=== PATIENT | female | born 1990 | race Caucasian/White ===

== ENCOUNTER 2018-05-09 22:06 | Emergency (ER) | payer OTHER, MEDICAID ==
[2018-05-10] MEDS: ACETAMINOPHEN 500 MG TAB PO (00:28)
[2018-05-10 00:56] LABS: ADD UMIC NO; UR ASCORBIC ACID NEGATIVE (NEGATIVE); UR BILIRUBIN (Dip) NEGATIVE (NEGATIVE); UR BLOOD (Dip) NEGATIVE (NEGATIVE); UR CLARITY CLEAR (CLEAR); UR COLOR YELLOW (YELLOW); UR GLUCOSE (Dip) NEGATIVE (NEGATIVE); UR KETONES (Dip) NEGATIVE (NEGATIVE); UR LEUKOCYTE ESTERASE (Dip) NEGATIVE Leu/ul (NEGATIVE); UR NITRITE (Dip) NEGATIVE (NEGATIVE); UR SPECIFIC GRAVITY (Dip) 1.018 (1.003-1.030); UR TOTAL PROTEIN (Dip) NEGATIVE (NEGATIVE); UR UROBILINOGEN (Dip) NEGATIVE (NEGATIVE)
== END 2018-05-10 02:18 | disposition home or self-care (01) ==
LOC: FTE 22:06
DX: O9A.211 Injury, poisoning and certain other consequences of external causes complicating pregnancy, first trimester (principal); S40.011A Contusion of right shoulder, initial encounter; R10.2 Pelvic and perineal pain; V43.62XA Car passenger injured in collision with other type car in traffic accident, initial encounter; Z3A.13 13 weeks gestation of pregnancy
CPT/HCPCS: 76805; 81003; 87086; 99284-25

== ENCOUNTER 2018-05-13 01:12 | Emergency (ER) | payer OTHER ==
[2018-05-13] MEDS: ACETAMINOPHEN 325 MG TAB PO (02:15)
== END 2018-05-13 03:45 | disposition home or self-care (01) ==
LOC: FTE 01:12
DX: O26.891 Other specified pregnancy related conditions, first trimester (principal); R10.30 Lower abdominal pain, unspecified; Z3A.14 14 weeks gestation of pregnancy
CPT/HCPCS: 76805; 99284-25

== ENCOUNTER 2018-05-23 16:40 | Emergency (ER) | payer OTHER | END 2018-05-23 22:14 | disposition home or self-care (01) | LOC: FTE 16:40 | DX: O20.9 Hemorrhage in early pregnancy, unspecified (principal); Z3A.15 15 weeks gestation of pregnancy | CPT/HCPCS: 76805; 99284-25 ==

== ENCOUNTER 2018-11-06 18:59 | Inpatient (IN) | payer OTHER ==
[2018-11-06 20:12] LABS: ADD UMIC NO; UR ASCORBIC ACID NEGATIVE (NEGATIVE); UR BILIRUBIN (Dip) NEGATIVE (NEGATIVE); UR BLOOD (Dip) NEGATIVE (NEGATIVE); UR CLARITY CLEAR (CLEAR); UR COLOR STRAW (YELLOW); UR GLUCOSE (Dip) NEGATIVE (NEGATIVE); UR KETONES (Dip) NEGATIVE (NEGATIVE); UR LEUKOCYTE ESTERASE (Dip) NEGATIVE Leu/ul (NEGATIVE); UR NITRITE (Dip) NEGATIVE (NEGATIVE); UR SPECIFIC GRAVITY (Dip) 1.009 (1.003-1.030); UR TOTAL PROTEIN (Dip) NEGATIVE (NEGATIVE); UR UROBILINOGEN (Dip) NEGATIVE (NEGATIVE)
[2018-11-06] MEDS ORDERED: LACTATED RINGER'S 1,000 ML IV (20:23)
[2018-11-06] MEDS ORDERED: MINERAL OIL LIGHT 10 ML VIAL TOP (20:30)
[2018-11-06] MEDS ORDERED: MISOPROSTOL 200 MCG TAB PR (20:30)
[2018-11-06] MEDS ORDERED: CARBOPROST 250 MCG INJ IM (20:30)
[2018-11-06] MEDS ORDERED: IBUPROFEN 600 MG TAB PO (20:30)
[2018-11-06] MEDS ORDERED: LIDOCAINE 1% (MPF) 30 ML INJ INJ (20:30)
[2018-11-06] MEDS ORDERED: OXYTOCIN 30 UNITS/LR 500 ML IV ×2 (20:30)
[2018-11-06 20:35] LABS: BARBITURATES NEGATIVE (NEGATIVE); BENZODIAZEPINES NEGATIVE (NEGATIVE); CANNABINOIDS NEGATIVE (NEGATIVE); COCAINE NEGATIVE (NEGATIVE); OPIATES NEGATIVE (NEGATIVE)
[2018-11-06 20:49] LABS: AMPHETAMINE/METHAMPHETAMINE Negative (NEGATIVE)
[2018-11-06] MEDS: LACTATED RINGER'S 1,000 ML IV (21:40)
[2018-11-06 22:12] LABS: ADD MAN DIFF? NO
[2018-11-06 22:14] LABS: BASOPHIL # 0.1 10^3/ul (0.0-0.1); BASOPHILS % 0.5 % (0.0-2.0); EOSINOPHILS # 0.1 10^3/ul (0.0-0.5); EOSINOPHILS % 1.1 % (0.0-7.0); HEMATOCRIT 30.5 % (37.0-47.0); HEMOGLOBIN 10.1 g/dl (12.0-16.0); LYMPHOCYTES # 2.5 10^3/ul (0.8-2.9); LYMPHOCYTES % 21.6 % (15.0-51.0); MEAN CORPUSCULAR HGB CONC 33.1 g/dl (32.0-37.0); MEAN CORPUSCULAR VOLUME 87.6 fl (82.0-101.0); MEAN PLATELET VOLUME 11.2 fl (7.4-10.4); MONOCYTE # 0.9 10^3/ul (0.3-0.9); NEUTROPHIL # 7.5 10^3/ul (1.6-7.5); NEUTROPHILS % 66.3 % (39.0-77.0); PLATELET COUNT 233 10^3/UL (140-415); RED BLOOD COUNT 3.48 10^6/ul (4.20-5.40); RED CELL DISTRIBUTION WIDTH 13.6 % (11.5-14.5)
[2018-11-06 22:14] LABS: WHITE BLOOD COUNT 11.3 10^3/ul (4.8-10.8)
[2018-11-06 22:33] LABS: INR 0.91; PROTIME 12.4 Sec (11.9-14.9)
[2018-11-06 22:34] LABS: PARTIAL THROMBOPLASTIN TIME 27.3 Sec (23.0-35.0)
[2018-11-06] MEDS: MISOPROSTOL 50 MCG CAPSULE PO (22:58)
[2018-11-07] MEDS: MISOPROSTOL 50 MCG CAPSULE PO ×4 (02:00→15:57)
[2018-11-07] MEDS: LACTATED RINGER'S 1,000 ML IV ×3 (04:56→15:47)
[2018-11-07] MEDS: OXYTOCIN 30 UNITS/LR 500 ML IV ×2 (11:01→19:55)
[2018-11-07] MEDS: BUTORPHANOL 2 MG INJ IV (13:33)
[2018-11-07 15:17] LABS: RAPID PLASMA REAGIN NONREACTIVE (NR)
[2018-11-07] MEDS ORDERED: FENTAnyl 2MCG/ML-ROPIV 0.2% 100 ML (15:18)
[2018-11-07] MEDS ORDERED: DIPHENHYDRAMINE 50 MG INJ IV ×2 (16:00→22:30)
[2018-11-07] MEDS ORDERED: NALOXONE (0.4 MG/ML) INJ IV (16:00)
[2018-11-07] MEDS ORDERED: ONDANSETRON 4 MG INJ IV ×2 (16:00→22:30)
[2018-11-07] MEDS: FENTAnyl 2MCG/ML-ROPIV 0.2% 100 ML BAG EPI (19:29)
[2018-11-07] MEDS: METHYLERGONOVINE 0.2 MG INJ IM (19:29)
[2018-11-07 19:31] LABS: CBV Base Excess -3.9 mmol/L; CBV COHb 1.5 %; CBV Oxygen Sat 69.6 mmHG; CBV Total Hemglobin 16.5 g/dl; Cord Blood Venous pO2 30.9 mmHG (15.0-45.0); Fraction OxyHgb Cord Venous 67.8 %; MODE ROOM AIR; MetHgb Cord Venous 1.1 %; Sample Type Blood venous; Site CORD
[2018-11-07] MEDS: MISOPROSTOL 200 MCG TAB PO (19:38)
[2018-11-07] MEDS: ACETAMINOPHEN 500 MG TAB PO (19:52)
[2018-11-07] MEDS: LACTATED RINGER'S 1,000 ML IV* (22:05)
[2018-11-07] MEDS: DEXTROSE 5%-LR 1,000 ML IV ×2 (22:05→23:59)
[2018-11-07] MEDS ORDERED: OXYCODONE/ASPIRIN (4.88/325) TAB PO (22:30)
[2018-11-07] MEDS ORDERED: CARBOPROST 250 MCG INJ IM (22:30)
[2018-11-07] MEDS ORDERED: METHYLERGONOVINE 0.2 MG INJ IM (22:30)
[2018-11-07] MEDS ORDERED: DIBUCAINE 1% 30 GM OINT TOP (22:30)
[2018-11-07] MEDS ORDERED: OXYTOCIN 30 UNITS/LR 500 ML IV (22:30)
[2018-11-07] MEDS ORDERED: MISOPROSTOL 200 MCG TAB PR (22:30)
[2018-11-07] MEDS ORDERED: ACETAMINOPHEN 325 MG TAB PO (22:30)
[2018-11-07] MEDS ORDERED: ZOLPIDEM 5 MG TAB PO (22:30)
[2018-11-07] MEDS: IBUPROFEN 600 MG TAB PO (23:52)
[2018-11-07] MEDS: BENZOCAINE 20% 56 ML SPRAY TOP (23:52)
[2018-11-07] MEDS: WITCH HAZEL/GLYCERIN PAD PR (23:53)
[2018-11-08] MEDS: IBUPROFEN 600 MG TAB PO ×3 (05:57→18:35)
[2018-11-08] MEDS: LACTATED RINGER'S 1,000 ML IV* ×2 (06:05→14:05)
[2018-11-08 06:43] LABS: ADD MAN DIFF? NO
[2018-11-08 06:47] LABS: WHITE BLOOD COUNT 18.6 10^3/ul (4.8-10.8)
[2018-11-08 06:47] LABS: ABNORMAL IP MESSAGE 1; BASOPHIL # 0.1 10^3/ul (0.0-0.1); BASOPHILS % 0.4 % (0.0-2.0); EOSINOPHILS # 0.1 10^3/ul (0.0-0.5); EOSINOPHILS % 0.5 % (0.0-7.0); HEMATOCRIT 29.5 % (37.0-47.0); HEMOGLOBIN 9.9 g/dl (12.0-16.0); LYMPHOCYTES # 2.7 10^3/ul (0.8-2.9); LYMPHOCYTES % 14.5 % (15.0-51.0); MEAN CORPUSCULAR HGB CONC 33.6 g/dl (32.0-37.0); MEAN CORPUSCULAR VOLUME 86.5 fl (82.0-101.0); MEAN PLATELET VOLUME 11.1 fl (7.4-10.4); MONOCYTE # 1.7 10^3/ul (0.3-0.9); MONOCYTES % 8.9 % (0.0-11.0); NEUTROPHIL # 13.7 10^3/ul (1.6-7.5); PLATELET COUNT 221 10^3/UL (140-415); RED BLOOD COUNT 3.41 10^6/ul (4.20-5.40); RED CELL DISTRIBUTION WIDTH 13.6 % (11.5-14.5)
[2018-11-08 06:51] LABS: POSITIVE DIFF @See below
[2018-11-08] MEDS: MAGNESIUM HYDROXIDE 30ML CUP PO (09:41)
[2018-11-08] MEDS: SENNA/DOCUSATE NA (8.6MG/50MG) TAB PO (09:41)
[2018-11-08] MEDS: LANOLIN HPA 1 PKT TOP (10:33)
[2018-11-08] MEDS: DEXTROSE 5%-LR 1,000 ML IV ×2 (14:05→23:53)
[2018-11-09] MEDS: IBUPROFEN 600 MG TAB PO ×3 (05:58→12:09)
[2018-11-09] MEDS: DEXTROSE 5%-LR 1,000 ML IV (06:05)
[2018-11-09] MEDS: SENNA/DOCUSATE NA (8.6MG/50MG) TAB PO (08:44)
[2018-11-09] MEDS: MEASLES,MUMPS,RUBELLA VACCINE INJ SC* (09:00)
[2018-11-09] MEDS: DIPHTH/TET/ACEL PERTUSS (ADULT) 0.5 ML VIAL IM* (12:45)
[2018-11-09 12:46] LABS: ADD MAN DIFF? NO
[2018-11-09 12:50] LABS: BASOPHIL # 0.1 10^3/ul (0.0-0.1); BASOPHILS % 0.6 % (0.0-2.0); EOSINOPHILS # 0.2 10^3/ul (0.0-0.5); EOSINOPHILS % 1.3 % (0.0-7.0); HEMATOCRIT 28.1 % (37.0-47.0); HEMOGLOBIN 9.2 g/dl (12.0-16.0); LYMPHOCYTES # 2.3 10^3/ul (0.8-2.9); LYMPHOCYTES % 16.6 % (15.0-51.0); MEAN CORPUSCULAR HEMOGLOBIN 29.1 pg (29.0-33.0); MEAN CORPUSCULAR HGB CONC 32.7 g/dl (32.0-37.0); MEAN CORPUSCULAR VOLUME 88.9 fl (82.0-101.0); MEAN PLATELET VOLUME 11.2 fl (7.4-10.4); MONOCYTE # 1.1 10^3/ul (0.3-0.9); MONOCYTES % 7.9 % (0.0-11.0); NEUTROPHIL # 9.6 10^3/ul (1.6-7.5); NEUTROPHILS % 70.8 % (39.0-77.0); PLATELET COUNT 246 10^3/UL (140-415); RED BLOOD COUNT 3.16 10^6/ul (4.20-5.40); RED CELL DISTRIBUTION WIDTH 13.9 % (11.5-14.5)
[2018-11-09 12:50] LABS: WHITE BLOOD COUNT 13.5 10^3/ul (4.8-10.8)
== END 2018-11-09 16:15 | disposition home or self-care (01) | DRG 807 ==
LOC: OBT 18:59 → L-D 11-07 00:57 → PP1 11-07 22:00 → OBT 20:19 → L-D 20:19
PROC: 10E0XZZ Delivery of Products of Conception, External Approach (ICD-10-PCS; principal; 2018-11-07)
PROC: 0W8NXZZ Division of Female Perineum, External Approach (ICD-10-PCS; 2018-11-07)
DX: O36.63X0 Maternal care for excessive fetal growth, third trimester, not applicable or unspecified (principal); Z37.0 Single live birth; O69.1XX0 Labor and delivery complicated by cord around neck, with compression, not applicable or unspecified; O90.81 Anemia of the puerperium; D64.9 Anemia, unspecified; Z3A.39 39 weeks gestation of pregnancy; Z23 Encounter for immunization
CPT/HCPCS: 36415; 62322; 76815; 76818; 80307; 81003; 82803; 85025; 85610; 85730; 86592; 86850; 86900; 86901; 88305; 88307; 90715